=== PATIENT | female | born 1960 | race Caucasian/White ===

== ENCOUNTER 2024-11-12 07:44 | Day surgery (SDC) | payer MEDICAID ==
[2024-11-07 11:50] LABS: BASOPHILS # (AUTO) 0.1 X10'3 (0-0.2); BASOPHILS % (AUTO) 0.6 % (0-1); EOSINOPHILS # (AUTO) 0.1 X10'3 (0-0.9); EOSINOPHILS % (AUTO) 0.5 % (0-6); LYMPHOCYTES # (AUTO) 2.1 X10'3 (1.1-4.8); LYMPHOCYTES % (AUTO) 22.7 % (21-51); MEAN CORPUSCULAR HEMOGLOBIN 31.7 PG (27.0-31.0); MEAN CORPUSCULAR HGB CONC 32.1 g/dL (33.0-36.5); MEAN CORPUSCULAR VOLUME 98.5 FL (78-98); MEAN PLATELET VOLUME 6.7 FL (7.4-10.4); MONOCYTES # (AUTO) 0.8 X10'3 (0-0.9); MONOCYTES % (AUTO) 8.9 % (2-12); NEUTROPHILS # (AUTO) 6.2 X10'3 (1.8-7.7); NEUTROPHILS % (AUTO) 67.3 % (42-75); PRE OP HEMATOCRIT 42.6 % (35.0-45.0); PRE OP HEMOGLOBIN 13.7 g/dL (12.0-16.0); PRE OP PLATELET COUNT 323 X10'3 (140-440); PRE OP WHITE BLOOD COUNT 9.2 10'3 (4.8-10.8); RED BLOOD COUNT 4.32 X10'6 (4.20-5.60); RED CELL DISTRIBUTION WIDTH 17.9 % (11.5-14.5)
[2024-11-07 12:05] LABS: ALBUMIN 3.8 G/DL (3.4-5.0); ALBUMIN/GLOBULIN RATIO 0.9 (1.1-1.5); ALKALINE PHOSPHATASE 126 IU/L (46-116); BLOOD UREA NITROGEN 7 MG/DL (7-18); BUN/CREATININE RATIO 8.9 (10.0-20.0); CALCIUM 9.3 MG/DL (8.5-10.1); CHLORIDE 104 MMOL/L (99-107); CREATININE 0.79 MG/DL (0.40-0.90); PRE OP ALT 16 U/L (30-65); PRE OP ANION GAP 8 (8-16); PRE OP AST 15 U/L (10-37); PRE OP BILIRUB, TOTAL 0.2 MG/DL (0.0-1.0); PRE OP GLUCOSE 101 MG/DL (70-104); PRE OP POTASSIUM 4.2 MMOL/L (3.4-5.1); PRE OP SODIUM 137 MMOL/L (135-145); TOTAL CARBON DIOXIDE 24.8 MMOL/L (24-32); TOTAL PROTEIN 8.1 G/DL (6.4-8.2); eGFR 74 ML/MIN
[2024-11-12] VITALS (7 sets, daily range): BP systolic 116–146; BP diastolic 56–79; PULSE 72–111; RESP 12–20; TEMP 97.8; O2SAT 96–100
[~2024-11-12] VITALS: Ht 167.6 cm; Wt 89.5 kg
[2024-11-12] MEDS: ceFAZolin 2gm in dextrose, iso 50 ML IV ONE (05:30)
[~2024-11-12 07:44] MED LIST: ALBU90AE PO; BUSP15TA7 PO; CHOL500050 PO; DOCU-392 PO; EST1T PO; HYDR100C2 PO; IBUP-1986 PO; PALI819S IM; QUET100T34 PO; TIOT4MIS3 INH; albuterol 2.5 MG/3 ML nebule NEB PRN
[2024-11-12] MEDS ORDERED: BUPIVAcaine/PF 2.5mg/ml (0.25%) 10ml vial ONE (08:28)
[2024-11-12] MEDS ORDERED: LIDOcaine 2% (20mg/ml) 5ml vial ONE (08:28)
[2024-11-12] MEDS ORDERED: VARE1TAB29 (08:34)
[2024-11-12] MEDS: famotidine 20mg tablet PO ONE (08:37)
[2024-11-12] MEDS: ringers solution, lacted 1,000 ML IV SCH (08:37)
[2024-11-12] MEDS ORDERED: fentaNYL/PF 50MCG/1 ML 2ML syringe ONE (10:09)
[2024-11-12] MEDS ORDERED: midazolam 1 mg/ML 2ml injection ONE (10:30)
[2024-11-12] MEDS ORDERED: LIDOcaine 0.5% (5mg/ml) 50ml vial ONE (10:30)
[2024-11-12] MEDS ORDERED: propofol inj 20 ML IV ONE ×2 (10:30)
[2024-11-12] MEDS ORDERED: labetalol 20mg/4ml (5mg/ml) syringe IV PRN (10:55)
[2024-11-12] MEDS ORDERED: ondansetron/PF 4mg/2ml inj IV PRN (10:55)
[2024-11-12] MEDS ORDERED: morphine 4 MG/ML inj SYRINge IV PRN (10:55)
[2024-11-12] MEDS ORDERED: morphine 2 MG/ML inj. syringe IV PRN (10:55)
[2024-11-12] MEDS ORDERED: ringers solution, lacted 1,000 ML IV SCH (10:55)
[2024-11-12] MEDS ORDERED: meperidine/PF 25mg/ml syringe IV PRN ×3 (10:55)
[2024-11-12] MEDS ORDERED: hydrALAZINE 20mg/ml inj. IV PRN (10:55)
[2024-11-12] MEDS ORDERED: proCHLORperazine 10 MG/2 ml inj IV PRN (10:55)
[2024-11-12] MEDS ORDERED: BUPIVAcaine 2.5mg/ml inj 50ml vial (contains preservative) ONE (10:58)
[2024-11-12] MEDS: acetaminophen 1,000mg/100ml IV 100 ML IV PRN (11:01)
[2024-11-12] MEDS ORDERED: meperidine/PF 100mg/ml syringe IV PRN (11:01)
[2024-11-12] MEDS: meperidine/PF 100mg/ml syringe IV PRN ×2 (11:13→11:38)
== END 2024-11-12 12:12 | disposition home or self-care (01) ==
LOC: PAS 07:44
PROVIDERS: ATTEND Orthopaedic Surgery Hand Surgery
DX: M70.22 Olecranon bursitis, left elbow (principal); T84.89XA Other specified complication of internal orthopedic prosthetic devices, implants and grafts, initial encounter; M19.111 Post-traumatic osteoarthritis, right shoulder; M19.90 Unspecified osteoarthritis, unspecified site; F41.9 Anxiety disorder, unspecified; Y83.8 Other surgical procedures as the cause of abnormal reaction of the patient, or of later complication, without mention of misadventure at the time of the procedure; L98.8 Other specified disorders of the skin and subcutaneous tissue; J44.9 Chronic obstructive pulmonary disease, unspecified; Z90.710 Acquired absence of both cervix and uterus; Z98.890 Other specified postprocedural states; Z79.899 Other long term (current) drug therapy; F31.9 Bipolar disorder, unspecified
CPT/HCPCS: 20680; 24105; 36415; 80053; 82948; 85025; 87070; 87075; 93005; J0131; J0690; J2175; J2250; J2704; J3010; J3490; J7030; J7120; Z7506; Z7512; A4215; A4618; A6446; A6449; A7000; J2003